=== PATIENT | female | born 1955 | race Caucasian/White ===

== ENCOUNTER → 2021-10-31 08:31 | Outpatient (BNVA) | payer OTHER, SELFPAY | PROVIDERS: PCP Internal Medicine; Visit Provider Psychiatry & Neurology Neurology | DX: Z13.89 Encounter for screening for other disorder (principal) ==

== ENCOUNTER → 2022-07-31 09:29 | Outpatient (BNVA) | payer OTHER, SELFPAY | PROVIDERS: PCP Internal Medicine; Visit Provider Psychiatry & Neurology Neurology | DX: G24.5 Blepharospasm (principal); G24.9 Dystonia, unspecified; G47.33 Obstructive sleep apnea (adult) (pediatric) ==

== ENCOUNTER 2022-07-31 10:24 | Outpatient (REF) | payer OTHER, SELFPAY ==
[2022-07-31 13:50] LABS: MANUAL DIFF FLAG NO
[2022-07-31 13:56] LABS: Basophils Absolute Auto 0.1 X10*3/uL (0.0-0.2); Eosinophils Absolute Auto 0.1 X10*3/uL (0.0-0.4); Eosinophils Percent Auto 1.6 % (0-4); Hematocrit 43.4 % (37.0-47.0); Hemoglobin 14.1 g/dl (12.0-16.0); Imm Gran Abs Auto 0.01 X10*3/uL (0.00-0.03); Imm Gran Pct Auto 0.2 % (0.0-0.4); Lymphocytes Absolute Auto 1.6 X10*3/uL (1.2-4.9); Lymphocytes Percent Auto 25.3 % (20-40); Mean Corpuscular HGB Conc 32.5 g/dl (31.0-35.0); Mean Corpuscular Hemoglobin 30.7 pg (27.0-33.0); Mean Corpuscular Volume 94.6 fL (80.0-98.0); Mean Platelet Volume 10.2 fL (9.4-12.3); Monocytes Absolute Auto 0.6 X10*3/uL (0.1-1.2); Monocytes Percent Auto 9.1 % (2-11); Neutrophils Absolute Auto 3.9 x10*3/uL (2.0-8.3); Neutrophils Percent Auto 62.8 % (45-73); Platelet Count 270 X10*3/uL (160-400); Red Blood Count 4.59 X10*6/uL (4.20-5.50); Red Cell Distribution Width 12.2 % (11.0-16.0); White Blood Count 6.3 X10*3/uL (4.8-10.8)
[2022-07-31 14:21] LABS: Alanine Aminotransferase 30 U/L (0-31); Albumin Level 4.4 g/dL (3.5-5.0); Alkaline Phosphatase 88 U/L (39-117); Anion Gap 13 (12-20); Aspartate Amino Transferase 27 U/L (5-31); Bilirubin Total 0.3 mg/dL (0.0-1.0); Blood Urea Nitrogen 20 mg/dL (9-16); Calcium 9.6 mg/dL (8.4-10.2); Carbon Dioxide 28 mmol/L (22-29); Chloride 104 mmol/L (96-108); Estimated Glomerular Filt Rate > 60; Glucose Random 98 mg/dL (60-115); Potassium 4.4 mmol/L (3.3-5.1); Sodium 141 mmol/L (135-145); Total Protein 7.3 g/dL (6.5-8.0)
[2022-07-31 14:43] LABS: Erythrocyte Sedimentation Rate 23 MM/HR (0-20)
[2022-08-06 21:19] LABS: CK-BB None Detected (None Detected); CK-MB 0 % (<5); CK-MM 100 % (95-100); Creatine Kinase,Total,Serum 94 U/L (29-143)
== END 2022-07-31 10:25 | disposition home or self-care (01) ==
LOC: HO.10HDL 10:24
PROVIDERS: PCP Internal Medicine; Visit Provider Psychiatry & Neurology Neurology
DX: G24.9 Dystonia, unspecified (principal); M79.10 Myalgia, unspecified site
CPT/HCPCS: 36415; 80053; 82552; 85025; 85652

== ENCOUNTER → 2022-11-14 14:19 | Outpatient (BNVA) | payer OTHER, SELFPAY | PROVIDERS: Visit Provider Nurse Practitioner Family | DX: Z13.89 Encounter for screening for other disorder (principal) ==

== ENCOUNTER 2023-05-16 14:26 | Outpatient (AMB) | payer OTHER, SELFPAY ==
--- NOTE | 2023-05-16 14:31 | A.OFFVIS_ITS ---
Intake Vital Signs 05/16/23 14:32 Height 5 ft 5 in Weight 211 lb 4 oz BMI 35.2 BP 128/66 Blood Pressure Location Lt brachial Position Sitting Pulse 71 Pulse Source Pulse Oximeter Pulse Oximetry (%) 96 Oxygen Delivery Method Room Air Intake Visit Reasons: 6m f/u Dystonia/muscle pain -Confirmed Intake Note: Pt presents for 6 month fup dystonia and muscle pain. Pt states she sees some improvement c am medications of clonazepam . Pt still feels tightness in jaw and neck and difficulty swallowing Allergies gabapentin Allergy (Mild, Verified 05/16/23 14:36) Swelling trihexyphenidyl [From Artane] Allergy (Verified 05/16/23 14:36) Swelling HPI HPI Comments History of Present Illness Details 67 y/o female patient presents for follo w up of lower face dystonia, blepherospasm and obstructive sleep apnea. Pt reports that lower face dystonia manages well with Ingrezza 60 mg. She started clonazepam 0.25mg BID and it helps her lower face muscle tightness and also helps her to use CPAP. Pt feels lower face and neck muscle tightness during the day, especially after some activities including walking. And has mild degree of difficulty swallowing. Pt gets botox for her blepherospasm at Dr. Klein s office, the last Botox was 4 weeks ago. The CPAP compliance and therapy response ( 04/16/23-05/15/23) reviewed. She is on APAP [id number]. Usage days 100% and average usage hours 4 hours and 10 min. The median pressure is 5.6, max pressure was 8.4 and the AHI was 0.7/hr. Pt's daytime fatigue has improved. 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 Review of Systems Const All systems reviewed & are unremarkable except as noted in HPI and below Physical Exam Vital Signs: Last Vital Signs Pulse 71 05/16/23 14:32 BP 128/66 05/16/23 14:32 Pulse Ox 96 05/16/23 14:32 Oxygen Delivery Method Room Air 05/16/23 14:32 BMI result Body Mass Index 35.2 Const General: cooperative, healthy appearing, comfortable and no acute distress Nutritional Appearance: overweight Orientation/consciousness: patient oriented x3 HEENT Other: No blepherospasm decreased blink , very mild lower face dystonia Eyes Pupils: Equal, round and reactive pupils present Neuro General: patient oriented x3 Cranial nerves: Yes Equal, round and reactive pupils present, Yes Bilaterally intact EOM present, Yes Nystagmus not present, Yes Normal facial strength present, Yes Midline tongue present and Yes Other cranial nerve findings present (mild ptosis) Cognition (Neuro): normal cognition Gait exam (Neuro): Normal gait present Motor exam (neuro): 5/5 motor strength present throughout and Normal motor muscle tone present throughout Coordination: [id number] test normal Psych Mental Status: mental status grossly normal Speech and movement: Normal speech and movement present Affect: Sad affect present Thought process: Normal thought process present Assessment & Plan Assessment & Plan (1) Blepharospasm: Code(s): G24.5 - Blepharospasm (2) Dystonia: Comment: Oromandibular dystonia Code(s): G24.9 - Dystonia, unspecified (3) Obstructive sleep apnea: Code(s): G47.33 - Obstructive sleep apnea (adult) (pediatric) Plan Continue to take Ingrezza 60mg qd and botox. Continue to use CPAP nightly and more than 4 hours as patient experiences good clinical effects. Continue clonazepam 0.25 mg BID for muscle spasm. Pt wants to consult regarding deep brain stimulation for oromandibular dystonia. Refer patient to [facility] movement disorder-dystonia clinic. Orders: Referrals Neurology Referral G24.9 - Dystonia, unspecified Medications: Refilled valbenazine (Ingrezza) 60 mg PO DAILY 30 caps 6RF clonazepam administer 30 minutes before bedtime 0.25 mg PO BID 30 days 60 tabs 5RF Coding Level of Care Code Est Pt Level 4 (99708) Diagnoses Blepharospasm G24.5 Dystonia G24.9 Obstructive sleep apnea G47.33
[2023-05-16 14:32] VITALS: BP 128/66; PULSE 71; O2SAT 96; BMI 35.2
== END 2023-05-16 14:52 | disposition home or self-care (01) ==
PROVIDERS: Visit Provider Nurse Practitioner Family
DX: G24.5 Blepharospasm (principal); G24.9 Dystonia, unspecified; G47.33 Obstructive sleep apnea (adult) (pediatric)
CPT/HCPCS: 99214

== ENCOUNTER → 2023-05-16 14:26 | Outpatient (BNVA) | payer OTHER, SELFPAY | PROVIDERS: Visit Provider Nurse Practitioner Family ==

== ENCOUNTER 2023-11-15 08:52 | Outpatient (AMB) | payer OTHER, SELFPAY ==
--- NOTE | 2023-11-15 08:59 | A.OFFVIS_ITS ---
Vital Signs 11/15/23 09:05 Height 5 ft 5 in Weight 214 lb BMI 35.6 BP 120/80 Blood Pressure Location Lt brachial Position Sitting Pulse 65 Pulse Source Pulse Oximeter Pulse Oximetry (%) 95 Oxygen Delivery Method Room Air Intake Visit Reasons: 6 mo f/u -Dystonia/muscle pain/ LVM Intake Note: Patient presents for 6 months f/u. Allergies gabapentin Allergy (Mild, Verified 11/15/23 09:04) Swelling trihexyphenidyl [From Artane] Allergy (Verified 11/15/23 09:04) Swelling HPI Comments Details: 67 y/o female patient presents for follow up of lower face dystonia, blepherospasm and obstructive sleep apnea. Pt reports that lower face dystonia manages well with Ingrezza 60 mg. She takes clonazepam 0.25mg BID, 8:30 and 9 pm, and it helps her lower face muscle tightness and also helps her to use CPAP. She still has lower face and neck muscle tightness more in the morning, and it is discomfort and bothersome at work. And has mild degree of difficulty swallowing. Pt gets botox for her blepherospasm at Dr. Klein s office, the last Botox was yesterday. Having Botox every 10 weeks. She had cervical disc C5-7 surgery done on September,. The CPAP compliance and therapy response (10/15/23-11/13/23) reviewed. She is on APAP [id number]. Usage days 89 % and average usage hours 4 hours and 50 min. The max pressure is 8 max and the AHI was 0.6/hr. Pt sleeps well with CPAP and daytime fatigue has improved. 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 Review of Systems Const All systems reviewed & are unremarkable except as noted in HPI and below Physical Exam Vital Signs: Last Vital Signs Pulse 65 11/15/23 09:05 BP 120/80 11/15/23 09:05 Pulse Ox 95 11/15/23 09:05 Oxygen Delivery Method Room Air 11/15/23 09:05 BMI result Body Mass Index 35.6 Const General: cooperative, healthy appearing, comfortable and no acute distress Nutritional Appearance: overweight Orientation/consciousness: patient oriented x3 HEENT Other: No blepherospasm decreased blink , very mild lower face dystonia Eyes Pupils: Equal, round and reactive pupils present Neuro General: patient oriented x3 Cranial nerves: Yes Equal, round and reactive pupils present, Yes Bilaterally intact EOM present, Yes Nystagmus not present, Yes Normal facial strength present, Yes Midline tongue present and Yes Other cranial nerve findings present (mild ptosis) Cognition (Neuro): normal cognition Gait exam (Neuro): Normal gait present Motor exam (neuro): 5/5 motor strength present throughout and Normal motor muscle tone present throughout Coordination: okucwz-kd-efjg test normal Psych Mental Status: mental status grossly normal Speech and movement: Normal speech and movement present Affect: Sad affect present Thought process: Normal thought process present Assessment & Plan Assessment & Plan (1) Blepharospasm: Code(s): G24.5 - Blepharospasm Category: Medical (2) Dystonia: Comment: Oromandibular dystonia Code(s): G24.9 - Dystonia, unspecified Category: Medical (3) Obstructive sleep apnea: Code(s): G47.33 - Obstructive sleep apnea (adult) (pediatric) Category: Medical Plan Continue to take Ingrezza 60mg qd and botox. Continue to use CPAP nightly and more than 4 hours as patient experiences good clinical effects. Advised to try clonazepam 0.5 mg q AM and 0.25 mg qHS for facial and neck muscle spasm. Medications: New clonazepam 0.5 mg PO DAILY 30 tabs 5RF 30 days Changed From clonazepam administer 30 minutes before bedtime 0.25 mg PO BID 30 days 60 tabs 5RF To clonazepam administer 30 minutes before bedtime 0.25 mg PO BEDTIME 30 tabs 5RF 30 days Refilled valbenazine (Ingrezza) 60 mg PO DAILY 30 caps 6RF Coding Level of Care Code Est Pt Level 4 (39728) Diagnoses Blepharospasm G24.5 Dystonia G24.9 Obstructive sleep apnea G47.33
[2023-11-15 09:05] VITALS: BP 120/80; PULSE 65; O2SAT 95; BMI 35.6
== END 2023-11-15 09:29 | disposition home or self-care (01) ==
PROVIDERS: Visit Provider Nurse Practitioner Family
DX: G24.5 Blepharospasm (principal); G24.9 Dystonia, unspecified; G47.33 Obstructive sleep apnea (adult) (pediatric)
CPT/HCPCS: 99214

== ENCOUNTER → 2023-11-15 08:52 | Outpatient (BNVA) | payer OTHER, SELFPAY | PROVIDERS: Visit Provider Nurse Practitioner Family ==

== ENCOUNTER 2024-04-09 13:54 | Outpatient (AMB) | payer MEDICARE, SELFPAY ==
--- NOTE | 2024-04-09 14:00 | A.OFFVIS_ITS ---
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 Accompanied by: Self / Same As Patient Allergies gabapentin Allergy (Mild, Verified 04/09/24 14:04) Swelling trihexyphenidyl [From Artane] Allergy (Verified 04/09/24 14:04) Swelling Medication List - Last Reconciled 04/09/24 by Arline Alford MD clonazepam 0.25 mg PO BEDTIME 30 days clonazepam 0.5 mg PO DAILY 30 days estradiol 0.01%(0.1mg/gram) grams vaginal levothyroxine (Euthyrox) 75 mcg PO DAILY omeprazole 20 mg PO DAILY onabotulinumtoxinA (Botox) units IM valbenazine (Ingrezza) 60 mg PO DAILY HPI Comments Details: 68 y/o female patient presents for follow up of lower face dystonia, blepherospasm and obstructive sleep apnea. Pt reports that lower face dystonia manages well with Ingrezza 60 mg. She takes clonazepam 0.25mg BID, 8am, PRn at 3pm and 9 pm, and it helps her lower face muscle tightness and also helps her to use CPAP. She still has lower face and neck muscle tightness more in the morning, and it is discomfort and bothersome at work. And has mild degree of difficulty swallowing. she had a cervical spine surgery in October 2023 and is feeling better. Pt gets botox for her blepherospasm at Dr. Klein s office, the last Botox was yesterday. Having Botox every 10 weeks. She had cervical disc C5-7 surgery done on September,. The CPAP compliance and therapy response (01/12-04/14) reviewed. She is on APAP [id number]. Usage days 91 % and average usage hours 3 hours and 57 min.- feels restless and take sthe mask off The max pressure is 8 max and the AHI was 0.6/hr. Pt sleeps well with CPAP and daytime fatigue has improved. 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 Physical Exam Vital Signs: Last Vital Signs Pulse 88 04/09/24 14:01 BP 110/70 04/09/24 14:01 Pulse Ox 92 04/09/24 14:01 Oxygen Delivery Method Room Air 04/09/24 14:01 BMI result Body Mass Index 35.6 Const General: cooperative, healthy appearing, comfortable and no acute distress Nutritional Appearance: overweight Orientation/consciousness: patient oriented x3 HEENT Other: No blepherospasm decreased blink , very mild lower face dystonia Eyes Pupils: Equal, round and reactive pupils present Neuro General: patient oriented x3 Cranial nerves: Yes Equal, round and reactive pupils present, Yes Bilaterally intact EOM present, Yes Nystagmus not present, Yes Normal facial strength present, Yes Midline tongue present and Yes Other cranial nerve findings present (mild ptosis) Cognition (Neuro): normal cognition Gait exam (Neuro): Normal gait present Motor exam (neuro): 5/5 motor strength present throughout and Normal motor muscle tone present throughout Coordination: kznbuh-ym-vokw test normal Psych Mental Status: mental status grossly normal Speech and movement: Normal speech and movement present Affect: Sad affect present Thought process: Normal thought process present Assessment & Plan Assessment & Plan (1) Blepharospasm: Code(s): G24.5 - Blepharospasm Category: Medical (2) Dystonia: Comment: Oromandibular dystonia Code(s): G24.9 - Dystonia, unspecified Category: Medical (3) Obstructive sleep apnea: Code(s): G47.33 - Obstructive sleep apnea (adult) (pediatric) Category: Medical Plan Continue to take Ingrezza 60mg qd and botox. ( ) Continue to use CPAP nightly and more than 4 hours as patient experiences good clinical effects. Clonazepam 0.25 mg q AM and 0.25 mg 3pm and 0.5 mg bedtime for facial and neck muscle spasm. Medications: Refilled clonazepam 0.5 mg PO DAILY 30 days 30 tabs 5RF Coding Level of Care Code Est Pt Level 4 (67319) Complex EM visit Add On G2211 Diagnoses Blepharospasm G24.5 Dystonia G24.9 Obstructive sleep apnea G47.33
[2024-04-09 14:01] VITALS: BP 110/70; PULSE 88; O2SAT 92; BMI 35.6
== END 2024-04-09 14:23 | disposition home or self-care (01) ==
PROVIDERS: Visit Provider Psychiatry & Neurology Neurology
DX: G24.5 Blepharospasm (principal); G24.9 Dystonia, unspecified; G47.33 Obstructive sleep apnea (adult) (pediatric)
CPT/HCPCS: 99214; G2211

== ENCOUNTER → 2024-04-09 13:54 | Outpatient (BNVA) | payer MEDICARE, SELFPAY | PROVIDERS: Visit Provider Psychiatry & Neurology Neurology | DX: G24.5 Blepharospasm (principal); G24.9 Dystonia, unspecified; G47.33 Obstructive sleep apnea (adult) (pediatric) | CPT/HCPCS: 99212 ==

== ENCOUNTER 2024-11-11 15:18 | Outpatient (AMB) | payer MEDICARE, SELFPAY ==
--- NOTE | 2024-11-11 15:21 | MHC.OFFVIS ---
Vital Signs 11/11/24 15:22 Height 5 ft 5 in Weight 204 lb BMI 33.9 BP 118/72 Blood Pressure Location Rt brachial Position Sitting Pulse 74 Pulse Source Pulse Oximeter Pulse Oximetry (%) 98 Oxygen Delivery Method Room Air Intake Visit Reasons: 6 month F/U-Conf Intake Note: Patient presents for follow up compliance report scanned 11/02/24 Allergies gabapentin Allergy (Mild, Verified 11/11/24 15:23) Swelling trihexyphenidyl [From Artane] Allergy (Verified 11/11/24 15:23) Swelling Medication List - Last Reconciled 11/11/24 by Arline Alford MD clonazepam 0.25 mg PO TID 30 days estradiol 0.01%(0.1mg/gram) grams vaginal levothyroxine (Euthyrox) 75 mcg PO DAILY omeprazole 20 mg PO DAILY onabotulinumtoxinA (Botox) units IM valbenazine (Ingrezza) 60 mg PO DAILY HPI Comments Details: 68 y/o female patient presents for follow up of lower face dystonia, blepherospasm and obstructive sleep apnea. Pt reports that lower face dystonia manages well with Ingrezza 60 mg. She takes clonazepam 0.25mg BID, 8am, PRn at 3pm and 9 pm, and it helps her lower face muscle tightness and also helps her to use CPAP. She still has lower face and neck muscle tightness more in the morning, and it is discomfort and bothersome at work. And has mild degree of difficulty swallowing. she had a cervical spine surgery in October 2023 and is feeling better. Pt gets botox for her blepherospasm at Dr. Klein s office, the last Botox was 2 weeks ago . Having Botox every 10 weeks. She had cervical disc C5-7 surgery done on September,. The CPAP compliance and therapy response reviewed.08-15-11/13 She is on APAP [id number]. Usage days 98 % and average usage hours 4 hours and 45 min. The max pressure is 7 max and the AHI was 0.5/hr. Pt sleeps well with CPAP and daytime fatigue has improved. 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 Physical Exam Vital Signs: Last Vital Signs Pulse 74 11/11/24 15:22 BP 118/72 11/11/24 15:22 Pulse Ox 98 11/11/24 15:22 Oxygen Delivery Method Room Air 11/11/24 15:22 BMI result Body Mass Index 33.9 Const General: cooperative, healthy appearing, comfortable and no acute distress Nutritional Appearance: overweight Orientation/consciousness: patient oriented x3 HEENT Other: No blepherospasm decreased blink , very mild lower face dystonia Eyes Pupils: Equal, round and reactive pupils present Neuro General: patient oriented x3 Cranial nerves: Yes Equal, round and reactive pupils present, Yes Bilaterally intact EOM present, Yes Nystagmus not present, Yes Normal facial strength present, Yes Midline tongue present and Yes Other cranial nerve findings present (mild ptosis) Cognition (Neuro): normal cognition Gait exam (Neuro): Normal gait present Motor exam (neuro): 5/5 motor strength present throughout and Normal motor muscle tone present throughout Coordination: [id number]-wfbd test normal Psych Mental Status: mental status grossly normal Speech and movement: Normal speech and movement present Affect: Sad affect present Thought process: Normal thought process present Assessment & Plan Assessment & Plan (1) Blepharospasm: Code(s): G24.5 - Blepharospasm Category: Medical (2) Dystonia: Comment: Oromandibular dystonia Code(s): G24.9 - Dystonia, unspecified Category: Medical (3) Obstructive sleep apnea: Code(s): G47.33 - Obstructive sleep apnea (adult) (pediatric) Category: Medical Plan Continue to take Ingrezza 60mg qd and botox. ( ) Continue to use CPAP nightly and more than 4 hours as patient experiences good clinical effects. Clonazepam 0.25 mg tid for facial and neck muscle spasm. Medications: Changed From clonazepam 0.25 mg orally; qam and q 3 pm 30 days 30 tabs 5RF To clonazepam 0.25 mg PO TID 30 days 90 tabs 5RF Discontinued clonazepam Discontinued Reason: Doctor's Order 0.5 mg PO DAILY 30 days 30 tabs 5RF Coding Level of Care Code Est Pt Level 4 (71603) Diagnoses Blepharospasm G24.5 Dystonia G24.9 Obstructive sleep apnea G47.33
[2024-11-11 15:22] VITALS: BP 118/72; PULSE 74; O2SAT 98; BMI 33.9
--- OUTSIDE RECORDS SUMMARY | 2024-11-11 18:04 | XMS_ITS | Continuity of Care Document ---
Author Organization [employer] Address [address] [facility] [address] [place] [id number] Insurance Providers Payer Plan Claims Address Claims Phone Policy Number Group Number Relation Employer Guarantor Name Guarantor Guarantor Address Guarantor Phone [facility] DAVIAN ESPINAL MARILEE DOMINGUEZ [place] [facility], [address], [place] [address] tel:[phone] [id number] Self Deb Kb [address] [place] [id number] Problems Unknown Problems Results Test Value / Unit Interpretation Reference Ran Comp. Metabolic Panel (14)[[id number]]?Collected: 06/23/2024 05:15 PM?Specimen Received: 06/23/2024 05:00 AM?Source: [facility] Glucose [074228] 101 mg/dL H 70-99 mg/dL BUN [946426] 25 mg/dL 8-27 mg/dL Creatinine [408396] 0.84 mg/dL 0.57-1.0 0 mg/dL eGFR [245490] 77 mL/min/1.73 >59 mL/min/1 .73 BUN/Creatinine Ratio [333420] 30 H 12-28 Sodium [659311] 143 mmol/L 134-144 mmol /L Potassium [957141] 4.5 mmol/L 3.5-5.2 m mol/L Chloride [881793] 106 mmol/L 96-106 mmo l/L Carbon Dioxide, Total [012828] 22 mmol/L 20-29 mmol/L Calcium [715952] 9.3 mg/dL 8.7-10.3 mg /dL Protein, Total [515321] 6.5 g/dL 6.0- 8.5 g/dL Albumin [984712] 4.2 g/dL 3.9-4.9 g/d L Globulin, Total [398710] 2.3 g/dL 1.5 -4.5 g/dL Bilirubin, Total [423192] 0.2 mg/dL 0. 0-1.2 mg/dL Alkaline Phosphatase [769573] 106 IU/L 44-121 IU/L AST (SGOT) [194016] 23 IU/L 0-40 IU/ L ALT (SGPT) [143521] 21 IU/L 0-32 IU/ L Lipid Panel[[id number]]?Collected: 06/23/2024 05:15 PM?Specimen Received: 06/23/2024 05:00 AM?Source: [facility] Cholesterol, Total [581488] 229 mg/dL H 100-199 mg/dL Triglycerides [647478] 141 mg/dL 0-149 mg/dL HDL Cholesterol [318370] 52 mg/dL >39 mg/dL VLDL Cholesterol David [938621] 25 mg/dL 5-40 mg/dL LDL Chol Calc (NIH) [401736] 152 mg/dL H 0-99 mg/dL Hemoglobin A1c[[id number]]?Collected: 06/23/2024 05:15 PM?Specimen Received: 06/23/2024 05:00 AM?Source: [facility] Hemoglobin A1c [332163] 5.9 % H 4.8- 5.6 % . Prediabetes: 5.7 - 6.4 Hodan betes: >6.4 Glycemic control for adults with diabetes: 7.0 Allergies, adverse reactions, alerts No known allergies and adverse reactions Medications No administered medications reported Vital Signs No vital signs reported Social History No smoking Hx information available
== END 2024-11-11 15:45 | disposition home or self-care (01) ==
LOC: HO.HSMS 15:19
PROVIDERS: Visit Provider Psychiatry & Neurology Neurology
DX: G24.5 Blepharospasm (principal); G24.9 Dystonia, unspecified; G47.33 Obstructive sleep apnea (adult) (pediatric)
CPT/HCPCS: 99214

== ENCOUNTER → 2024-11-11 15:18 | Outpatient (BNVA) | payer MEDICARE, SELFPAY | PROVIDERS: Visit Provider Psychiatry & Neurology Neurology | DX: G24.5 Blepharospasm (principal); G24.9 Dystonia, unspecified; G47.33 Obstructive sleep apnea (adult) (pediatric); Z99.89 Dependence on other enabling machines and devices | CPT/HCPCS: 99212 ==

== ENCOUNTER 2025-05-05 14:35 | Outpatient (AMB) | payer MEDICARE, SELFPAY ==
--- NOTE | 2025-05-05 14:38 | MHC.OFFVIS ---
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 Accompanied by: Self / Same As Patient Allergies gabapentin Allergy (Mild, Verified 05/05/25 14:39) Swelling trihexyphenidyl (From Artane) Allergy (Verified 05/05/25 14:39) Swelling Medication List - Last Reconciled 05/05/25 by Arline Alford MD clonazepam 0.25 mg PO TID 30 days docusate sodium 100 mg PO BID PRN estradiol 0.01%(0.1mg/gram) grams vaginal levothyroxine (Euthyrox) 75 mcg PO DAILY omeprazole 20 mg PO DAILY onabotulinumtoxinA (Botox) units IM valbenazine (Ingrezza) 60 mg PO DAILY HPI Comments Details: 69 y/o female patient presents for follow up of lower face dystonia, blepherospasm and obstructive sleep apnea. Pt reports that lower face dystonia manages well with Ingrezza 60 mg. She takes clonazepam 0.25mg tid, 8am, 3pm and 9 pm, and it helps her lower face muscle tightness and also helps her to use CPAP. She still has lower face and neck muscle tightness more in the morning, and it is discomfort and bothersome at work. And has mild degree of difficulty swallowing. she had a cervical spine surgery in October 2023 and is feeling better. Pt gets botox for her blepherospasm at Dr. Klein s office, the last Botox was 4 weeks ago . Having Botox every 10 weeks. She had cervical disc C5-7 surgery done on September,. The CPAP compliance and therapy response reviewed 02/07-05/15 She is on APAP [id number]. Usage days 94 % and average usage hours 5 hours and 45 min. The max pressure is 7 max and the AHI was 0.4 hr. Pt sleeps well with CPAP and daytime fatigue has improved. 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 Physical Exam Vital Signs: Last Vital Signs Pulse 75 05/05/25 14:39 BP 120/78 05/05/25 14:39 Pulse Ox 97 05/05/25 14:39 Oxygen Delivery Method Room Air 05/05/25 14:39 BMI result Body Mass Index 33.9 Const General: cooperative, healthy appearing, comfortable and no acute distress Nutritional Appearance: overweight Orientation/consciousness: patient oriented x3 HEENT Other: No blepherospasm decreased blink , very mild lower face dystonia Eyes Pupils: Equal, round and reactive pupils present Neuro General: patient oriented x3 Cranial nerves: Yes Equal, round and reactive pupils present, Yes Bilaterally intact EOM present, Yes Nystagmus not present, Yes Normal facial strength present, Yes Midline tongue present and Yes Other cranial nerve findings present (mild ptosis) Cognition (Neuro): normal cognition Gait exam (Neuro): Normal gait present Motor exam (neuro): 5/5 motor strength present throughout and Normal motor muscle tone present throughout Coordination: ivuvjj-kx-lmal test normal Psych Mental Status: mental status grossly normal Speech and movement: Normal speech and movement present Affect: Sad affect present Thought process: Normal thought process present Assessment & Plan Assessment & Plan (1) Blepharospasm: Code(s): G24.5 - Blepharospasm Category: Medical (2) Dystonia: Comment: Oromandibular dystonia Code(s): G24.9 - Dystonia, unspecified Category: Medical (3) Obstructive sleep apnea: Code(s): G47.33 - Obstructive sleep apnea (adult) (pediatric) Category: Medical Plan Continue to take Ingrezza 60mg qd and botox. ( ) Continue to use CPAP nightly and more than 4 hours as patient experiences good clinical effects. Clonazepam 0.25 mg tid for facial and neck muscle spasm. Coding Level of Care Code Est Pt Level 4 (18077) Complex EM visit Add On G2211 Diagnoses Blepharospasm G24.5 Dystonia G24.9 Obstructive sleep apnea G47.33
[2025-05-05 14:39] VITALS: BP 120/78; PULSE 75; O2SAT 97; BMI 33.9
--- OUTSIDE RECORDS SUMMARY | 2025-05-05 18:18 | XMS_ITS | Clinical Summary ---
Author Organization [facility] Address [address] [place] [id number] Phone Care Team Providers Care Imcu Nurse Name Role Phone Galdino Augustine MD Primary Care Provider [phone] Allergies Active Allergy Reactions Criticality Noted Date Comments Gabapentin Swelling 01/03/2023 Pregabalin Swelling 11/29/2023 Tramadol Nausea and/or Vomiting 11/29/2023 nausea Tree And Shrub Pollen 01/03/2023 Fall hay fever allergies seasonal Medications levothyroxine (SYNTHROID, LEVOTHROID) 75 MCG tablet Take 1 tablet by mouth daily. Active naproxen sodium (ALEVE) 220 MG tablet Take 1 tablet by mouth daily. Active estradiol (ESTRACE) 0.01 % (0.1 mg/gram) vaginal creamIndications:A trophy of vagina Place vaginally 2 (two) times a week. 0.5 g Esternally to the vaginal opening Daily for two weeks, then twice weekly 42.5 g 1 8 Active zolpidem (AMBIEN) 10 mg tablet TAKE 1 TABLET BY MOUTH EVERY DAY NEEDED FOR SLEEP 1 9 Active BOTOX 100 unit SolR 9 Active nortriptyline (PAMELOR) 10 MG capsule TAKE 1 CAPSULE BY MOUTH AT BEDTIME FOR 1 WEEK THEN INCREASE TO 2 CAPS 1 Active omeprazole (PRILOSEC) 20 MG capsule TAKE 1 CAPSULE BY MOUTH ONCE DAILY FOR 90 DAYS 1 Active pregabalin (LYRICA) 75 MG capsule Take 75 mg by mouth 3 (three) times a day. 1 Active trihexyphenidyL (ARTANE) 2 MG tablet Take 2 mg by mouth 3 (three) times a day. 1 Active INGREZZA 40 mg capsule 60 mg. 2 Active clonazePAM (KLONOPIN) 0.25 MG disintegrating tablet DISSOLVE 1 TABLET IN MOUTH TWICE DAILY 30 MINUTES BEFORE BEDTIME 3 Active Hospital, Clinic, or Other Facility Administered Medication Ordered Dose Route Frequency Start Date End Date Status triamcinolone acetonide (KENALOG-40) 40 mg/mL injection 20 mg 20 mg IM Once 04/26/2025 07/25/2025 Active BUPivacaine (PF) (MARCAINE) 0.25% injection 0.5 mL 0.5 mL See Adm Inst Once 04/26/2025 07/25/2025 Active lidocaine (XYLOCAINE) 1% injection 0.5 mL 0.5 mL Infil Once 04/26/2025 07/25/2025 Active Active Problems Problem Noted Date Diagnosed Date 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 01/03/2023 Arthritis 01/02/2018 Goiter 01/02/2018 Encounters Date Type Department Care Team Description 04/26/2025 2:30 PM EDT Office Visit [facility] & [facility] Medicine [address] [place] [address] Marisol Tinoco MD Arthritis of first metatarsophalangeal (MTP) joint of right foot (Primary Dx) from Last 3 Months Family History Medical History Relation Comments CV disease Father cardiac arrest Diabetes mellitus Father Emphysema Mother Hypertension Mother Relation Status Comments Father Mother Social History Tobacco Use Types Packs/Day Years Used Date Smoking Tobacco: Never Smokeless Tobacco: Never Alcohol Use Standard Drinks/Week Comments No 0 (1 standard drink = 0.6 oz pur e alcohol) Education Answer Date Recorded Are you interested in more education? Not on breana e 11/16/2022 Are you concerned about learning? Not on file 11/16/2022 No 11/16/2022 No 11/16/2022 Digital Access Answer Date Recorded No 12/15/2022 No 12/15/2022 Reliable internet access at home? Not on file 12/15/2022 Device with a working camera? Not on file Comments No Sex and Gender Information Value Date Recorded Sex Assigned at Female 10/31/2022 12:14 PM EDT Legal Sex Female 9:51 PM EDT Gender Identity Female 10/31/2022 12:14 PM EDT Sexual Orientation Straight 10/31/2022 12 :14 PM EDT Last Filed Vital Signs Vital Sign Reading Time Taken Comments Blood Pressure 120/78 01/02/2018 3:33 PM EDT Pulse - - Temperature - - Respiratory Rate - - Oxygen Saturation - - Inhaled Oxygen Concentration - - Weight 85.3 kg (188 lb) 03/23/2021 8:35 AM EDT Height 165.1 cm (5' 5 ) 03/23/2021 8:35 AM EDT Body Mass Index 31.28 03/23/2021 8:35 AM EDT Plan of Treatment Health Maintenance Due Date Last Done Comments LIPID PANEL 1957 TSH LEVEL 1957 DEPRESSION SCREENING 1969 HEPATITIS C SCREENING 12/05/1975 MAMMOGRAM 1997 COLOGUARD 2002 COLONOSCOPY 2002 COLORECTAL CANCER SCREENING 2002 FIT TEST 2002 FOBT 2002 SIGMOIDOSCOPY 2002 VIRTUAL COLONOSCOPY 2002 OSTEOPOROSIS SCREENING INITIAL (ONE-TIME) 2022 COVID-19 VACCINE (2024- season) 2025 06/23/2022, 07/06/2021, 09/14/2020, Additional history exists Adult Td,Tdap Booster 02/22/2032 02/21/2022 , 05/25/2011, 07/22/2001 ZOSTER VACCINES Completed 06/19/2020, 05/23, 03/31/2020 PNEUMOCOCCAL VACCINES (50+ years) Completed 05/25/2024 SMOKING STATUS SCREENING (Once After 26 Yrs) Completed 10/01/2024 INFLUENZA VACCINE Completed 03/31/2025, , 05/18/2023, Additional history exists RSV VACCINE Completed 03/31/2025 HEPATITIS A VACCINES Aged Out No long er eligible based on patient's age to complete this topic HIB VACCINES Aged Out No longer eligi ble based on patient's age to complete this topic MENINGOCOCCAL VACCINES (ACWY) Aged Out No longer eligible based on patient's age to complete this topic MENINGOCOCCAL VACCINES (B) Aged Out N o longer eligible based on patient's age to complete this topic Medical Devices Not on file Insurance [employer] RE[employer] Care Teams Imcu Nurse Relationship Specialty Start Date End Date Galdino Augustine MD [address] [place] [phone] PCP - General Internal Medicine 11/29/23 Additional Source Comments The information contained in this document represents components of the legal health record. It is not the complete legal health record.[facility]
--- OUTSIDE RECORDS SUMMARY | 2025-05-05 18:18 | XMS_ITS | Encounter Summary ---
Author Organization [facility] Address [address] [place] [address] Phone Care Team Providers Care Choir Leader Name Role Phone Vitor White MD Primary Care Provide r Galdino Augustine MD Primary Care Provider [phone] Encounter Details Date Type Department Care Team (Late st Contact Info) Description 04/17/2023 Procedure Pass OR Admitting Dept - Virtual Department [address] [place] [address] Social History Tobacco Use Types Packs/Day Years [...] Orientation Straight 10/31/2022 12 :14 PM EDT documented as of this encounter Plan of Treatment Not on file documented as of this encounter Visit Diagnoses Not on filedocumented in this encounter Care Teams Choir Leader Relationship Specialty Start Date End Date Vitor White MD [address] [place] [phone] PCP - General 07/25/17 11/28/23 Galdino Augustine MD [address] [place] [phone] PCP - General Internal Medicine 11/29/23 documented as of this encounter Additional Source Comments The information contained in this document represents components of the legal health record. It is not the complete legal health record.[facility]
--- OUTSIDE RECORDS SUMMARY | 2025-05-05 18:18 | XMS_ITS | Encounter Summary ---
Author Organization [facility] Address [address] [place] [phone] Phone Care Team Providers Care Fish And Wildlife Technician Name Role Phone Vitor White MD Primary Care Provide r Galdino Augustine MD Primary Care Provider [phone] Reason for Referral * Consultation (Routine) - Closed Specialty Diagnoses / Procedures Referred By Terry castellanos Referred To Contact Neurology Diagnoses Dystonia Shan Rashid NP Phone: tel: fax: [email or web address] t [address] [address] Phone: tel: Referral ID Status Reason Start Date Expiration Date Visits Re quested Visits Authorized [id number] Closed 06/07/2023 06/07/2024 1 1 Encounter Details Date Type Department Care Team (Late st Contact Info) Description 06/07/2023 Transcribe Orders [facility] Referral Management [address] [place] [address] Shan Rashid NP [address] [place] [address] [email or web address] Dystonia (Primary Dx) Social History Tobacco Use Types Packs/Day Years [...] as of this encounter Plan of Treatment Scheduled Referrals Name Type Priority Associated Diagnoses Order Schedule Ambulatory referral to [facility] Neurology Outpatient Referral Routine Dystonia Ordered: 06/07/2023 documented as of this encounter Visit Diagnoses Diagnosis Dystonia- Primary Abnormal involuntary movements documented in this encounter Care Teams Fish And Wildlife Technician Relationship Specialty Start Date End Date Vitor White MD [address] [place] [phone] PCP - General 07/25/17 11/28/23 Galdino Augustine MD [address] [place] [phone] PCP - General Internal Medicine 11/29/23 documented as of this encounter Additional Source Comments The information contained in this document represents components of the legal health record. It is not the complete legal health record.[facility]
== END 2025-05-05 14:56 | disposition home or self-care (01) ==
LOC: HO.HSMS 14:35
PROVIDERS: Visit Provider Psychiatry & Neurology Neurology
DX: G24.5 Blepharospasm (principal); G24.9 Dystonia, unspecified; G47.33 Obstructive sleep apnea (adult) (pediatric)
CPT/HCPCS: 99214; G2211

== ENCOUNTER → 2025-05-05 14:35 | Outpatient (BNVA) | payer MEDICARE, SELFPAY | PROVIDERS: Visit Provider Psychiatry & Neurology Neurology | DX: G24.5 Blepharospasm (principal); G24.9 Dystonia, unspecified; G47.33 Obstructive sleep apnea (adult) (pediatric) | CPT/HCPCS: 99212 ==